=== PATIENT | male | born 1955 | race Asian ===

== ENCOUNTER 2017-10-05 11:55 | Outpatient (CLI) | payer BC | END 2017-10-05 12:55 | disposition home or self-care (01) | LOC: RAD 11:55 | DX: M25.561 Pain in right knee (principal) ==

== ENCOUNTER 2019-02-26 13:55 | Emergency (ER) | payer OTHER ==
[~2019-02-26] VITALS: Ht 175.3 cm; Wt 108.9 kg
[2019-02-26 14:53] LABS: PLATELET COUNT 330 K/uL (142-355)
[2019-02-26 15:05] LABS: POTASSIUM 3.4 mmol/L (3.6-5.2)
[2019-02-26 19:25] VITALS: BP 122/75; TEMP 98.2
== END 2019-02-26 19:25 | disposition home or self-care (01) ==
LOC: ED 13:55
PROVIDERS: Family Medicine
DX: K52.9 Noninfective gastroenteritis and colitis, unspecified (principal)
CPT/HCPCS: 80053; 81000; 82150; 83690; 85027; 96360; 96375; 99283; J2405

== ENCOUNTER 2021-01-04 18:37 | Emergency (ER) | payer OTHER ==
[~2021-01-04] VITALS: Ht 175.3 cm; Wt 108.9 kg
[2021-01-04 18:55] LABS: PLATELET COUNT 330 K/uL (142-355)
[2021-01-04 19:05] LABS: POTASSIUM 3.5 mmol/L (3.6-5.2)
[2021-01-04 19:15] LABS: PARTIAL THROMBOPLASTIN TIME 27.2 SECONDS (24.5-33.6)
[2021-01-04 20:50] VITALS: TEMP 98
[2021-01-04 23:14] VITALS: BP 127/57
== END 2021-01-04 23:16 | disposition short-term general hospital (02) ==
LOC: ED 18:41
PROVIDERS: Emergency Medicine Emergency Medical Services
DX: K92.2 Gastrointestinal hemorrhage, unspecified (principal); I47.1 Supraventricular tachycardia; Z20.828 Contact with and (suspected) exposure to other viral communicable diseases; R06.02 Shortness of breath
CPT/HCPCS: 80053; 82272; 83690; 83880; 84484; 85027; 85610; 85730; 87635; 93005; 96360; 96361; 96374; 96375; 96376; 99285; J0153; J3490; U0003

== ENCOUNTER 2021-03-27 10:31 | Outpatient (CLI) | payer OTHER | END 2021-03-27 19:26 | disposition home or self-care (01) | LOC: RAD 10:31 | PROVIDERS: ATTEND Internal Medicine | DX: M79.642 Pain in left hand (principal) ==